=== PATIENT | male | born 1985 | race Caucasian/White ===

== ENCOUNTER 2020-06-14 08:12 | Inpatient (IN) | payer OTHER ==
--- NOTE | 2020-06-14 09:21 | BHS.RME ---
Substance Use & Tx History - Substance Use History Heroin Substance amount: 10 bags Frequency of use: Daily Substance route: Injection (ex: intravenous or skin popping) Date of Last Use: 07/13/20 Xanax Substance amount: 6 mgs Frequency of use: Daily Substance route: Oral Date of Last Use: 06/12/20 Alcohol Substance amount: 1/2 pint of whisky Frequency of use: Daily Substance route: Oral Date of Last Use: 06/13/20 - Last Treatment Date of last treatment: 2017 [place] Where was last treatment: Detox Physical/Psych/Mental Status - Behavior Eye Contact: Normal - Cooperativeness Cooperativeness: Cooperative - Thinking Thought Processes: Logical Thought content: Future oriented - Physical Health Problems Is patient presently having any pain?: No Does patient presently have any injuries (include location): No Does patient currently have a fever: No COWS - Scale Resting Pulse: 1= [place] 81-100 Sweatin= Chills/Flushing Restless Observation: 0= Sits Still Pupil Size: 1= Pupils >than Normal Bone or Joint Aches: 2= Severe Diffuse Aches Runny Nose/ Eye Tearin= Runny Nose/Eyes GI Upset > 30mins: 2= Nausea/Diarrhea Tremor Observation: 2= Slight Tremor Visible Yawning Observation: 1= 1-2x During Session Anxiety or Irritability: 2=Irritable/Anxious Goose Flesh Skin: 0=Smooth Skin COWS Score: 14 CIWA Nausea/Vomitin Muscle Tremors: 3 Anxiety: 3 Agitation: 3 Paroxysmal Sweats: 1-Minimal Palms Moist Orientation: 0-Oriented Tacttile Disturbances: 1-Very Mild Itch/Numbness Auditory Disturbances: 0-None Visual Disturbances: 0-None Headache: 2-Mild CIWA-Ar Total Score: 15
--- NOTE | 2020-06-14 09:29 | HP ---
COWS - Scale Resting Pulse: 1= [place] 81-100 Sweatin= Chills/Flushing Restless Observation: 0= Sits Still Pupil Size: 1= Pupils >than Normal Bone or Joint Aches: 2= Severe Diffuse Aches Runny Nose/ Eye Tearin= Runny Nose/Eyes GI Upset > 30mins: 2= Nausea/Diarrhea Tremor Observation: 2= Slight Tremor Visible Yawning Observation: 1= 1-2x During Session Anxiety or Irritability: 2=Irritable/Anxious Goose Flesh Skin: 0=Smooth Skin COWS Score: 14 CIWA Score Nausea/Vomitin Muscle Tremors: 3 Anxiety: 3 Agitation: 3 Paroxysmal Sweats: 1-Minimal Palms Moist Orientation: 0-Oriented Tacttile Disturbances: 1-Very Mild Itch/Numbness Auditory Disturbances: 0-None Visual Disturbances: 0-None Headache: 2-Mild CIWA-Ar Total Score: 15 - Admission Criteria [facility] Guidelines: Admission for Medically Managed Detox: Requires at least one of the followin. CIWA greater than 12 2. Seizures within the past 24 hours 3. Delirium tremens within the past 24 hours 4. Hallucinations within the past 24 hours 5. Acute intervention needed for co occurring medical disorder 6. Acute intervention needed for co occurring psychiatric disorder 7. Severe withdrawal that cannot be handled at a lower level of care (continued vomiting, continued diarrhea, abnormal vital signs) requiring intravenous medication and/or fluids 8. Admitting History and Physical - Admission Chief Complaint: i need help to stop using heroin and xanax and alcohol History of Present Illness: this 35 years old male with heroin,xanax and alcohol dependence seeking detox History Source: Patient Limitations to Obtaining History: No Limitations - Past Medical History Psych: Yes: Anxiety, Depression, Other (insomnia) - Past Surgical History Past Surgical History: Yes: None - Smoking History Smoking history: Current every day smoker Have you smoked in the past 12 months: Yes Aproximately how many cigarettes per day: 20 - Alcohol/Substance Use Hx Alcohol Use: Yes History of Substance Use: reports: Heroin, Tranquilizers Date of Last Use: 06/13/20 - Social History Usual Living Arrangement: Yes: Other (sister) Do you think of yourself as: Straight/Heterosexual ADL: Independent Occupation: un employed History of Recent Travel: No Other Social History: unemployed,nicottine dependence,no legal issue Admission [facility] Chief Complaint: i need help to stop using heroin,xanax,and alcohol Allergies/Adverse Reactions: Allergies Allergy/AdvReac Type Severity Reaction Status Date / Time shellfish derived Allergy Severe Swelling Verified 06/14/20 09:29 No Known Drug Allergies Allergy Verified 06/14/20 09:29 History of Present Illness: this 35 years old male with heroin,xanax and alcohol dependence seeking detox,multiple admissions in detox,and rehab,last [facility] in 2017 no seizure,no syncope nicotine dependence unemployed anxiety,depression,insomnia longest sobriety 3 years plan for rehab after detox Exam Limitations: No Limitations - Ebola screening Have you traveled outside of the country in the last 21 days: No Have you had contact with anyone from an Ebola affected area: No Do you have a fever: No - Review of Systems Constitutional: Chills, Loss of Appetite, Malaise, Night Sweats, Changes in sleep, Weakness EENT: reports: No Symptoms Reported, Nose Congestion Respiratory: reports: No Symptoms reported Cardiac: reports: No Symptoms Reported GI: reports: Nausea, Indigestion, Abdominal cramping : reports: No Symptoms Reported Musculoskeletal: reports: Back Pain, Joint Pain, Muscle Pain Integumentary: reports: Dryness Neuro: reports: Headache, Tremors Endocrine: reports: No Symptoms Reported Hematology: reports: No Symptoms Reported Psychiatric: reports: No Sypmtoms Reported, Judgement Intact, Mood/Affect Appropiate, Orientated x3, Anxious, Depressed, other (insomnia) Patient History - Patient Medical History Hx Anemia: No Hx Asthma: No Hx Chronic Obstructive Pulmonary Disease (COPD): No Hx Cancer: No Hx Cardiac Disorders: No Hx Congestive Heart Failure: No Hx Hypertension: No Hx Hypercholesterolemia: No Hx Pacemaker: No HX Cerebrovascular Accident: No Hx Seizures: No Hx Diabetes: No Hx Gastrointestinal Disorders: No Hx Liver Disease: No Hx Genitourinary Disorders: No Hx Sexually Transmitted Disorders: No Hx Renal Disease (ESRD): No Hx Thyroid Disease: No Hx Human Immunodeficiency Virus (HIV): No (last 2017 negative) Hx Hepatitis C: No Hx Depression: Yes (anxiety) Hx Suicide Attempt: No Hx Bipolar Disorder: No Hx Schizophrenia: No Other Medical History: no suicidal,no homicidal - Patient Surgical History Past Surgical History: No - PPD History Previous Implant?: Yes Documented Results: Negative w/o proof Implanted On Prior [facility] Admission?: Yes Date: 01/17/16 PPD to be Administered?: Yes - Smoking Cessation Smoking history: Current every day smoker Have you smoked in the past 12 months: Yes Aproximately how many cigarettes per day: 20 Hx Chewing Tobacco Use: No Initiated information on smoking cessation: Yes 'Breaking Loose' booklet given: 06/14/20 - Substance & Tx. History Hx Alcohol Use: Yes Hx Substance Use: Yes Substance Use Type: Alcohol, Heroin, Tranquilizers - Substances abused Heroin Substance route: Injection Frequency: Daily Amount used: 10 bags Age of first use: 27 Date of last use: 06/12/20 Alprazolam (Xanax) Substance route: Oral Frequency: Daily Amount used: 6 mgs Age of first use: 17 Date of last use: 06/12/20 Alcohol Substance route: Oral Frequency: Daily Amount used: 1/2 pint of whisky Age of first use: 14 Date of last use: 06/13/20 Admission Physical Exam S - Vital Signs Vital Signs: t98,p81,bp 112/78,r18 - Physical General Appearance: Yes: Moderate Distress, Tremorous, Irritable, Sweating, Anxious HEENTM: Yes: Normocephalic, GAMAL, Pharynx Normal Respiratory: Yes: Lungs Clear, Normal Breath Sounds, No Respiratory Distress Neck: Yes: Within Normal Limits, Supple, Trachea in good position Breast: Yes: Within Normal Limits Cardiology: Yes: Within Normal Limits, Regular Rhythm, Regular Rate, S1, S2 Abdominal: Yes: Within Normal Limits, Normal Bowel Sounds, Non Tender, Flat, Soft Genitourinary: Yes: Within Normal Limits Back: Yes: Muscle Spasm Musculoskeletal: Yes: Back pain, Muscle Pain Extremities: Yes: Tremors Neurological: Yes: director of group counseling program II-XII NML intact, Fully Oriented, Alert, Motor Strength 5/5 Integumentary: Yes: Dry, Track Sethi Lymphatic: Yes: Within Normal Limits - Diagnostic (1) Opioid dependence with withdrawal Current Visit: No Status: Acute (2) Sedative hypnotic or anxiolytic dependence Current Visit: No Status: Acute (3) Insomnia Current Visit: Yes Status: Acute (4) Anxiety and depression Current Visit: Yes Status: Acute (5) IVDU (intravenous drug user) Current Visit: Yes Status: Acute Cleared for Admission S - Detox or Rehab [facility] Level of Care: Medically Managed Detox Regimen/Protocol: Methadone/Valium Inpatient Rehab Admission - Rehab Decision to Admit Inpatient rehab admission?: No
[2020-06-14] MEDS ORDERED: MAGNESIUM HYDROX 2400MG/30ML ORAL SUSPENSION 30 ML CUP PO PRN (09:45)
[2020-06-14] MEDS ORDERED: cloNIDine HCL 0.1 MG TABLET PO PRN (09:45)
[2020-06-14] MEDS ORDERED: ACETAMINOPHEN 325 MG TABLET (FP) PO PRN ×2 (09:45)
[2020-06-14] MEDS ORDERED: METHADONE HCL 10 MG TABLET (FOR DETOX USE ONLY) PO ONE (09:45)
[2020-06-14] MEDS ORDERED: NICOTINE POLACRILEX 2 MG GUM BUC PRN (09:45)
[2020-06-14] MEDS ORDERED: METHOCARBAMOL 500 MG TABLET PO PRN (09:45)
[2020-06-14] MEDS ORDERED: BISMUTH SUBSALICYLATE 524 MG/30 ML UD PO PRN (09:45)
[2020-06-14] MEDS ORDERED: ONDANSETRON *ODT* 4 MG TABLET SL ONE (09:45)
[2020-06-14] MEDS ORDERED: MAG HYDROX/AL HYDROX/SIMETH 30 ML UNIT-DOSE CUP PO PRN (09:45)
[2020-06-14] MEDS ORDERED: MAGNESIUM CITRATE 300 ML BOTTLE PO PRN (09:45)
[2020-06-14] MEDS ORDERED: IBUPROFEN 400 MG TABLET (FP) PO PRN (09:45)
[2020-06-14] MEDS ORDERED: diazePAM 5 MG TABLET PO PRN (09:45)
[2020-06-14] MEDS ORDERED: MENTHOL/PHENOL 1 EACH UD MM PRN (09:45)
[2020-06-14 10:02] VITALS: BMI 29.8
[2020-06-14] MEDS: hydrOXYzine PAMOATE 25 MG CAPSULE (FP) PO SCH ×4 (10:50→22:52)
[2020-06-14] MEDS: PRENATAL VITAMINS W/ FOLIC ACID TABLET (FP) PO SCH (10:50)
--- NOTE | 2020-06-14 10:57 | PN ---
BHS Progress Note Note: received nurse call actifed needed to be added into prn
[2020-06-14] MEDS: NICOTINE 21 MG/24 HOURS TOPICAL PATCH TD SCH (11:11)
--- NOTE | 2020-06-14 12:49 | CONSULT ---
[facility] Psychiatric Consult - Data Date of interview: 06/14/20 Admission source: Self-referred Identifying data: Mr Tomlinson is a 35 years old single male, unemployed with no source of income, living with his sister seeking detox treatment for alcohol, opioid and benzodiazepine Substance Abuse History: Reports history of alcohol, herin and xanax use. Refer to addiction counselor's summary for further information Medical History: Unremarkable. Smokes cigarettes 1 ppd Psychiatric History: Patient is known for one previous admission to this facility. He denies history of previous psychiatric treatment. However, reports feeling depressed and sleeping poorly. During his previous admission to this facility, he was prescribed Ambien 10 mg/hs prn for insomnia Physical/Sexual Abuse/Trauma History: Denies history of abuse as a child or DV relationship as an adult Mental Status Exam - Mental Status Exam Alert and Oriented to: Time, Place, Person Patient Appearance: Well Groomed Mood: Depressed Affect: Appropriate Patient Behavior: Cooperative Speech Pattern: Clear Voice Loudness: Normal, Monoloudness Thought Process: Goal Oriented Thought Disorder: Not Present Hallucinations: Denies Suicidal Ideation: Denies Homicidal Ideation: Denies Insight/Judgement: Poor Sleep: Poorly Appetite: Good Muscle strength/Tone: Normal Gait/Station: Normal Psychiatric Findings - Problem List ([place] 1, 2,3) (1) Substance induced mood disorder Current Visit: Yes Status: Acute (2) Substance-induced sleep disorder Current Visit: No Status: Acute (3) Uncomplicated alcohol dependence Current Visit: Yes Status: Acute (4) Opioid dependence with withdrawal Current Visit: No Status: Acute (5) Sedative hypnotic or anxiolytic dependence Current Visit: No Status: Acute (6) Nicotine dependence Current Visit: No Status: Chronic - Initial Treatment Plan Initial Treatment Plan: 1) Start Belsomra 10 mg po HS prn for insomnia. 2) Continue inpatient detoxification
[2020-06-14] MEDS ORDERED: P-EPHED 60MG/TRIPROLIDI 2.5MG TABLET PO PRN (14:00)
[2020-06-14] MEDS: diazePAM 5 MG TABLET PO SCH ×2 (14:19→22:52)
[2020-06-14] MEDS ORDERED: SUVOREXANT 10 MG TABLET PO PRN (22:00)
[2020-06-14] MEDS ORDERED: MELATONIN 5 MG TABLETS PO SCH (22:00)
[2020-06-14] MEDS: THIAMINE HCL 100 MG TABLET (FP) PO SCH (22:51)
[2020-06-15] MEDS: diazePAM 5 MG TABLET PO SCH ×3 (05:48→22:30)
[2020-06-15] MEDS: hydrOXYzine PAMOATE 25 MG CAPSULE (FP) PO SCH ×2 (05:49→10:46)
[2020-06-15] MEDS ORDERED: METHADONE HCL 10 MG TABLET (FOR DETOX USE ONLY) ONE (09:03)
[2020-06-15] MEDS ORDERED: METHADONE HCL 5 MG TABLET (FOR DETOX USE ONLY) ONE (09:04)
[2020-06-15] MEDS ORDERED: METHADONE (DETOX) 20 MG, METHADONE (DETOX) 5 MG PO ONE (10:00)
[2020-06-15] MEDS: PRENATAL VITAMINS W/ FOLIC ACID TABLET (FP) PO SCH (10:44)
[2020-06-15] MEDS: NICOTINE 21 MG/24 HOURS TOPICAL PATCH TD SCH (10:45)
[2020-06-15 11:01] LABS: HEMATOCRIT 44.3 % (35.4-49); HEMOGLOBIN 14.4 GM/dL (11.7-16.9); MCH 27.8 pg (25.7-33.7); MCHC 32.6 g/dl (32.0-35.9); MEAN CELL VOLUME 85.3 fl (80-96); MEAN PLT VOLUME 8.9 fl (7.5-11.1); PLATELET COUNT 287 K/MM3 (134-434); RDW 14.4 % (11.9-15.9); WHITE BLOOD COUNT 9.9 K/mm3 (4.0-10.0)
[2020-06-15] MEDS ORDERED: DICYCLOMINE HCL 10 MG CAPSULE PO ONE (11:11)
[2020-06-15] MEDS ORDERED: hydrOXYzine PAMOATE 25 MG CAPSULE (FP) PO PRN (11:11)
--- NOTE | 2020-06-15 11:15 | PN ---
S CIWA - CIWA Score Nausea/Vomitin-Mild Nausea/No Vomiting Muscle Tremors: 3 Anxiety: 4-Mod. Anxious/Guarded Agitation: 2 Paroxysmal Sweats: 1-Minimal Palms Moist Orientation: 0-Oriented Tacttile Disturbances: 0-None Auditory Disturbances: 0-None Visual Disturbances: 1-Very Mild Sensitivity Headache: 1-Very Mild CIWA-Ar Total Score: 13 BHS COWS - Scale Resting Pulse: 0= [place] 80 or Below Sweatin= Chills/Flushing Restless Observation: 0= Sits Still Pupil Size: 1= Pupils >than Normal Bone or Joint Aches: 2= Severe Diffuse Aches Runny Nose/ Eye Tearin= None GI Upset > 30mins: 2= Nausea/Diarrhea Tremor Observation of Outstretched Hands: 2= Slight Tremor Visible Yawning Observation: 0= None Anxiety or Irritability: 2=Irritable/Anxious Goose Flesh Skin: 3=Piloerection COWS Score: 13 S Progress Note (SOAP) Subjective: 35 years old male admitted on 06/14/20 for alcohol benzo opiate withdrawal sx management treating with valium and methadone detox regiments abdominal cramping bentyl 20 mg po x 1 GERD discontinue motrin pepcide 20 mg po bid initiated change vistaril to prn Objective: 06/15/20 11:14 Vital Signs - 24 hr 06/14/20 06/14/20 06/14/20 13:21 16:59 20:37 Temperature 97.3 F L 98.6 F 97.6 F Pulse Rate 62 76 65 Respiratory 18 18 18 Rate Blood Pressure 114/77 111/74 117/77 O2 Sat by Pulse 95 97 Oximetry (%) 06/15/20 06/15/20 06:29 08:52 Temperature 98.4 F 98.6 F Pulse Rate 63 59 L Respiratory 18 20 Rate Blood Pressure 124/86 106/63 O2 Sat by Pulse 97 Oximetry (%) 06/15/20 11:14 lab pending Assessment: 06/15/20 11:14 alcohol benzo opiate withdrawal 06/15/20 11:15 GERD Plan: valium and methadone regiment pepcide 20 mg po bid
[2020-06-15 11:17] LABS: ALBUMIN 3.7 g/dl (3.4-5.0); BILIRUBIN,TOTAL 0.6 mg/dL (0.2-1); BLOOD UREA NITROGEN 14.1 mg/dL (7-18); CALCIUM 9.2 mg/dL (8.5-10.1); CREATININE 0.7 mg/dL (0.55-1.3); TOT PROT 7.4 g/dl (6.4-8.2)
[2020-06-15] MEDS: FAMOTIDINE 20 MG TABLET PO SCH ×2 (12:07→22:31)
[2020-06-15] MEDS: THIAMINE HCL 100 MG TABLET (FP) PO SCH (22:31)
[2020-06-16] MEDS: diazePAM 5 MG TABLET PO SCH ×2 (06:06→17:51)
[2020-06-16] MEDS ORDERED: METHADONE HCL 10 MG TABLET (FOR DETOX USE ONLY) PO ONE (10:00)
[2020-06-16] MEDS: PRENATAL VITAMINS W/ FOLIC ACID TABLET (FP) PO SCH (10:12)
[2020-06-16] MEDS: FAMOTIDINE 20 MG TABLET PO SCH ×2 (10:13→22:26)
[2020-06-16] MEDS: NICOTINE 21 MG/24 HOURS TOPICAL PATCH TD SCH (10:13)
--- NOTE | 2020-06-16 10:36 | PN ---
S CIWA - CIWA Score Nausea/Vomitin-Mild Nausea/No Vomiting Muscle Tremors: 3 Anxiety: 2 Agitation: 0-Normal Activity Paroxysmal Sweats: 1-Minimal Palms Moist Orientation: 0-Oriented Tacttile Disturbances: 1-Very Mild Itch/Numbness Auditory Disturbances: 0-None Visual Disturbances: 2-Mild Sensitivity Headache: 0-None Present CIWA-Ar Total Score: 10 S COWS - Scale Resting Pulse: 0= [place] 80 or Below Sweatin= Chills/Flushing Restless Observation: 0= Sits Still Pupil Size: 1= Pupils >than Normal Bone or Joint Aches: 1= Mild Discomfort Runny Nose/ Eye Tearin= Nasal Congestion GI Upset > 30mins: 2= Nausea/Diarrhea Tremor Observation of Outstretched Hands: 2= Slight Tremor Visible Yawning Observation: 0= None Anxiety or Irritability: 2=Irritable/Anxious Goose Flesh Skin: 0=Smooth Skin COWS Score: 10 S Progress Note (SOAP) Subjective: 35 years old male admitted on 06/14/20 for alcohol benzo opiate withdrawal sx management treating with valium and methadone detox regiments less tremor mild general body aches discussing medication assisted treatment program 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 from pharmacy upon discharge from detox Objective: 06/16/20 10:40 Vital Signs - 24 hr 06/15/20 06/15/20 06/15/20 12:50 16:50 20:50 Temperature 97.6 F 98.4 F 98.0 F Pulse Rate 64 63 64 Respiratory 18 18 18 Rate Blood Pressure 108/62 110/74 117/74 O2 Sat by Pulse 98 99 Oximetry (%) 06/16/20 06/16/20 06:09 08:30 Temperature 97.7 F 97.1 F L Pulse Rate 61 68 Respiratory 18 18 Rate Blood Pressure 105/67 106/70 O2 Sat by Pulse 97 Oximetry (%) Laboratory Tests 06/14/20 06/15/20 06/15/20 10:20 08:05 08:05 WBC RBC Hgb Hct MCV MCH MCHC RDW Plt Count MPV Sodium Potassium Chloride Carbon Dioxide Anion Gap BUN Creatinine Est GFR (CKD-EPI)AfAm Est GFR (CKD-EPI)NonAf Random Glucose Calcium Total Bilirubin AST ALT Alkaline Phosphatase Total Protein Albumin Syphilis Serology Non-reactive COVID-19 ([facility]) Not detected HIV Ag/Ab Combo Qual Negative 06/15/20 06/15/20 08:05 08:05 WBC 9.9 RBC 5.20 Hgb 14.4 Hct 44.3 MCV 85.3 MCH 27.8 MCHC 32.6 RDW 14.4 Plt Count 287 D MPV 8.9 Sodium 140 Potassium 4.0 Chloride 108 H Carbon Dioxide 25 Anion Gap 7 L BUN 14.1 Creatinine 0.7 Est GFR (CKD-EPI)AfAm 142.70 Est GFR (CKD-EPI)NonAf 123.13 Random Glucose 123 H Calcium 9.2 Total Bilirubin 0.6 AST 12 L ALT 17 Alkaline Phosphatase 72 Total Protein 7.4 Albumin 3.7 Syphilis Serology COVID-19 ([facility]) HIV Ag/Ab Combo Qual lab noted 06/16/20 10:41 fasting pending Assessment: 06/16/20 10:41 alcohol benzo opiate withdrawal Plan: valium and opiate regiments
[2020-06-16 14:41] LABS: EPI CELLS 26 /uL (0-25.1); HYALINE CASTS 11 /uL (0-3.1); PH,URINE 6.5 (5.0-8.0); URINE APPEARANCE CLEAR; URINE BACTERIA 10 /uL (0-1359); URINE BILIRUBIN NEGATIVE (NEGATIVE); URINE COLOR DK YELLOW; URINE GLUCOSE (UA) NEGATIVE (NEGATIVE); URINE KETONE TRACE (NEGATIVE); URINE LEUK ESTERASE 1+ (NEGATIVE); URINE NITRITE NEGATIVE (NEGATIVE); URINE PROTEIN 1+ (NEGATIVE); URINE RBC 6 /uL (0-23.9); URINE WBC 93 /uL (0-25.8)
[2020-06-16] MEDS: THIAMINE HCL 100 MG TABLET (FP) PO SCH (22:25)
[2020-06-17] MEDS ORDERED: diazePAM 5 MG TABLET PO ONE (06:00)
[2020-06-17] MEDS ORDERED: METHADONE HCL 5 MG TABLET (FOR DETOX USE ONLY) ONE (09:27)
[2020-06-17] MEDS ORDERED: METHADONE HCL 10 MG TABLET (FOR DETOX USE ONLY) ONE (09:27)
[2020-06-17] MEDS ORDERED: METHADONE (DETOX) 10 MG, METHADONE (DETOX) 5 MG PO ONE (10:00)
[2020-06-17] MEDS: NICOTINE 21 MG/24 HOURS TOPICAL PATCH TD SCH (10:36)
[2020-06-17] MEDS: PRENATAL VITAMINS W/ FOLIC ACID TABLET (FP) PO SCH (10:36)
[2020-06-17] MEDS: FAMOTIDINE 20 MG TABLET PO SCH ×2 (10:38→22:08)
--- NOTE | 2020-06-17 11:45 | PN ---
S CIWA - CIWA Score Nausea/Vomitin-Mild Nausea/No Vomiting Muscle Tremors: 2 Anxiety: 1-Mildly Anxious Agitation: 1-Slight > Activity Paroxysmal Sweats: 1-Minimal Palms Moist Orientation: 0-Oriented Tacttile Disturbances: 0-None Auditory Disturbances: 0-None Visual Disturbances: 2-Mild Sensitivity Headache: 1-Very Mild CIWA-Ar Total Score: 9 BHS COWS - Scale Resting Pulse: 0= [place] 80 or Below Sweatin= Chills/Flushing Restless Observation: 0= Sits Still Pupil Size: 1= Pupils >than Normal Bone or Joint Aches: 1= Mild Discomfort Runny Nose/ Eye Tearin= Nasal Congestion GI Upset > 30mins: 1= Stomach Cramp Tremor Observation of Outstretched Hands: 2= Slight Tremor Visible Yawning Observation: 1= 1-2x During Session Anxiety or Irritability: 1=Feels Anxious/Irritable Goose Flesh Skin: 0=Smooth Skin COWS Score: 9 S Progress Note (SOAP) Subjective: 35 years old male admitted on 06/14/20 for alcohol benzo opiate withdrawal sx management treating with valium and methadone detox regiment less tremor slept well with belsomra reports feeling ok today Objective: 06/17/20 11:45 Vital Signs - 24 hr 06/16/20 06/16/20 06/16/20 12:34 16:39 20:42 Temperature 97.8 F 97.7 F 98.3 F Pulse Rate 61 58 L 49 L Respiratory 18 16 18 Rate Blood Pressure 110/61 105/73 104/74 O2 Sat by Pulse 98 97 Oximetry (%) 06/17/20 06/17/20 06:39 08:52 Temperature 97.7 F 97.3 F L Pulse Rate 55 L 75 Respiratory 18 18 Rate Blood Pressure 104/67 107/71 O2 Sat by Pulse 98 Oximetry (%) Laboratory Tests 06/14/20 06/15/20 06/15/20 10:20 08:05 08:05 WBC RBC Hgb Hct MCV MCH MCHC RDW Plt Count MPV Sodium Potassium Chloride Carbon Dioxide Anion Gap BUN Creatinine Est GFR (CKD-EPI)AfAm Est GFR (CKD-EPI)NonAf Random Glucose Calcium Total Bilirubin AST ALT Alkaline Phosphatase Total Protein Albumin Urine Color Urine Appearance Urine pH Ur Specific [place] Urine Protein Urine Glucose (UA) Urine Ketones Urine Blood Urine Nitrite Urine Bilirubin Urine Urobilinogen Ur Leukocyte Esterase Urine WBC (Auto) Urine RBC (Auto) Urine Casts (Auto) U Epithel Cells (Auto) U Sm Round Cell (Auto) Urine Crystals (Auto) Urine Bacteria (Auto) Syphilis Serology Non-reactive COVID-19 ([facility]) Not detected HIV Ag/Ab Combo Qual Negative 06/15/20 06/15/20 06/16/20 08:05 08:05 08:50 WBC 9.9 RBC 5.20 Hgb 14.4 Hct 44.3 MCV 85.3 MCH 27.8 MCHC 32.6 RDW 14.4 Plt Count 287 D MPV 8.9 Sodium 140 Potassium 4.0 Chloride 108 H Carbon Dioxide 25 Anion Gap 7 L BUN 14.1 Creatinine 0.7 Est GFR (CKD-EPI)AfAm 142.70 Est GFR (CKD-EPI)NonAf 123.13 Random Glucose 123 H Calcium 9.2 Total Bilirubin 0.6 AST 12 L ALT 17 Alkaline Phosphatase 72 Total Protein 7.4 Albumin 3.7 Urine Color Dk yellow Urine Appearance Clear Urine pH 6.5 Ur Specific [place] 1.036 H Urine Protein 1+ H Urine Glucose (UA) Negative Urine Ketones Trace H Urine Blood Negative Urine Nitrite Negative Urine Bilirubin Negative Urine Urobilinogen 1.0 Ur Leukocyte Esterase 1+ H Urine WBC (Auto) 93 Urine RBC (Auto) 6 Urine Casts (Auto) 11 U Epithel Cells (Auto) 26 U Sm Round Cell (Auto) None seen Urine Crystals (Auto) 5-10 Urine Bacteria (Auto) 10 Syphilis Serology COVID-19 ([facility]) HIV Ag/Ab Combo Qual glucose elevation uti uncomplicated Assessment: 06/17/20 11:51 alcohol benzo opiate withdrawal Plan: valium and methadone regiment
[2020-06-17] MEDS ORDERED: SULFAMETHOXAZOLE/TRIMETHOPRIM 800MG/160MG D.S. TABLET PO SCH (12:00)
[2020-06-17] MEDS: SULFAMETHOXAZOLE/TRIMETHOPRIM 800MG/160MG D.S. TABLET PO SCH ×2 (13:26→22:08)
[2020-06-17] MEDS: THIAMINE HCL 100 MG TABLET (FP) PO SCH (22:08)
[2020-06-18] MEDS ORDERED: METHADONE HCL 10 MG TABLET (FOR DETOX USE ONLY) PO ONE (10:00)
[2020-06-18] MEDS: SULFAMETHOXAZOLE/TRIMETHOPRIM 800MG/160MG D.S. TABLET PO SCH ×2 (10:29→22:49)
[2020-06-18] MEDS: FAMOTIDINE 20 MG TABLET PO SCH ×2 (10:30→22:50)
[2020-06-18] MEDS: NICOTINE 21 MG/24 HOURS TOPICAL PATCH TD SCH (10:30)
[2020-06-18] MEDS: PRENATAL VITAMINS W/ FOLIC ACID TABLET (FP) PO SCH (10:30)
--- NOTE | 2020-06-18 13:32 | PN ---
S CIWA - CIWA Score Nausea/Vomitin-No Nausea/No Vomiting Muscle Tremors: 2 Anxiety: 1-Mildly Anxious Agitation: 0-Normal Activity Paroxysmal Sweats: No Perspiration Orientation: 0-Oriented Tacttile Disturbances: 0-None Auditory Disturbances: 0-None Visual Disturbances: 2-Mild Sensitivity Headache: 1-Very Mild CIWA-Ar Total Score: 6 BHS COWS - Scale Resting Pulse: 0= [place] 80 or Below Sweatin= No chills or Flushing Restless Observation: 0= Sits Still Pupil Size: 0= Normal to Room Light Bone or Joint Aches: 1= Mild Discomfort Runny Nose/ Eye Tearin= Nasal Congestion GI Upset > 30mins: 1= Stomach Cramp Tremor Observation of Outstretched Hands: 2= Slight Tremor Visible Yawning Observation: 0= None Anxiety or Irritability: 1=Feels Anxious/Irritable Goose Flesh Skin: 0=Smooth Skin COWS Score: 6 S Progress Note (SOAP) Subjective: 35 years old male admitted on 06/14/20 for alcohol benzo opiate withdrawal treating with valium and methadone detox regiments feeling better today less tremor slept through the night tolerated bactrim ds bid well for urinary track infection uncomplicated Objective: 06/18/20 13:37 Vital Signs - 24 hr 06/17/20 06/17/20 06/18/20 16:43 20:33 06:14 Temperature 97.7 F 97.7 F 97.3 F L Pulse Rate 52 L 60 51 L Respiratory 18 18 18 Rate Blood Pressure 101/70 105/73 100/64 O2 Sat by Pulse 100 98 Oximetry (%) 06/18/20 06/18/20 08:46 12:58 Temperature 96.9 F L 96.9 F L Pulse Rate 76 65 Respiratory 20 18 Rate Blood Pressure 100/71 110/67 O2 Sat by Pulse 96 Oximetry (%) Laboratory Tests 06/14/20 06/15/20 06/15/20 10:20 08:05 08:05 WBC RBC Hgb Hct MCV MCH MCHC RDW Plt Count MPV Sodium Potassium Chloride Carbon Dioxide Anion Gap BUN Creatinine Est GFR (CKD-EPI)AfAm Est GFR (CKD-EPI)NonAf Random Glucose Calcium Total Bilirubin AST ALT Alkaline Phosphatase Total Protein Albumin Urine Color Urine Appearance Urine pH Ur Specific [place] Urine Protein Urine Glucose (UA) Urine Ketones Urine Blood Urine Nitrite Urine Bilirubin Urine Urobilinogen Ur Leukocyte Esterase Urine WBC (Auto) Urine RBC (Auto) Urine Casts (Auto) U Epithel Cells (Auto) U Sm Round Cell (Auto) Urine Crystals (Auto) Urine Bacteria (Auto) Syphilis Serology Non-reactive COVID-19 ([facility]) Not detected HIV Ag/Ab Combo Qual Negative 06/15/20 06/15/20 06/16/20 08:05 08:05 08:50 WBC 9.9 RBC 5.20 Hgb 14.4 Hct 44.3 MCV 85.3 MCH 27.8 MCHC 32.6 RDW 14.4 Plt Count 287 D MPV 8.9 Sodium 140 Potassium 4.0 Chloride 108 H Carbon Dioxide 25 Anion Gap 7 L BUN 14.1 Creatinine 0.7 Est GFR (CKD-EPI)AfAm 142.70 Est GFR (CKD-EPI)NonAf 123.13 Random Glucose 123 H Calcium 9.2 Total Bilirubin 0.6 AST 12 L ALT 17 Alkaline Phosphatase 72 Total Protein 7.4 Albumin 3.7 Urine Color Dk yellow Urine Appearance Clear Urine pH 6.5 Ur Specific [place] 1.036 H Urine Protein 1+ H Urine Glucose (UA) Negative Urine Ketones Trace H Urine Blood Negative Urine Nitrite Negative Urine Bilirubin Negative Urine Urobilinogen 1.0 Ur Leukocyte Esterase 1+ H Urine WBC (Auto) 93 Urine RBC (Auto) 6 Urine Casts (Auto) 11 U Epithel Cells (Auto) 26 U Sm Round Cell (Auto) None seen Urine Crystals (Auto) 5-10 Urine Bacteria (Auto) 10 Syphilis Serology COVID-19 ([facility]) HIV Ag/Ab Combo Qual 06/18/20 13:39 fasting glucose has been cancelled Assessment: 06/18/20 13:40 alcohol benzo opiate withdrawal Plan: valium and methadone regiments
[2020-06-18] MEDS: THIAMINE HCL 100 MG TABLET (FP) PO SCH (22:50)
[2020-06-19] MEDS ORDERED: METHADONE HCL 5 MG TABLET (FOR DETOX USE ONLY) PO ONE (06:00)
[2020-06-19] MEDS: NICOTINE 21 MG/24 HOURS TOPICAL PATCH TD SCH (09:43)
[2020-06-19] MEDS: SULFAMETHOXAZOLE/TRIMETHOPRIM 800MG/160MG D.S. TABLET PO SCH (09:43)
[2020-06-19] MEDS: FAMOTIDINE 20 MG TABLET PO SCH (09:44)
[2020-06-19] MEDS: PRENATAL VITAMINS W/ FOLIC ACID TABLET (FP) PO SCH (09:44)
[2020-06-19 09:47] VITALS: BP 118/71; PULSE 75; TEMP 97.3
--- NOTE | 2020-06-19 10:27 | DS ---
[facility] Detox Discharge Summary Admission Date: 06/14/20 Discharge Date: 06/19/20 - History Present History: Alcohol Dependence, Opioid Dependence Pertinent Past History: Mr. Krause was admitted to [facility] for alcohol and heroin use disorder. - Physical Exam Results Vital Signs: Vital Signs Temperature 97.3 F L 06/19/20 08:48 Pulse Rate 75 06/19/20 08:48 Respiratory Rate 20 06/19/20 08:48 Blood Pressure 118/71 06/19/20 08:48 O2 Sat by Pulse Oximetry (%) 100 06/19/20 05:45 Pertinent Admission Physical Exam Findings: PE Gnl: WDWN, in no distress MS: normal mentation Coord: nl Gait: Steady Laboratory Tests 06/14/20 06/15/20 06/15/20 10:20 08:05 08:05 WBC RBC Hgb Hct MCV MCH MCHC RDW Plt Count MPV Sodium Potassium Chloride Carbon Dioxide Anion Gap BUN Creatinine Est GFR (CKD-EPI)AfAm Est GFR (CKD-EPI)NonAf Random Glucose Calcium Total Bilirubin AST ALT Alkaline Phosphatase Total Protein Albumin Urine Color Urine Appearance Urine pH Ur Specific Kevin Urine Protein Urine Glucose (UA) Urine Ketones Urine Blood Urine Nitrite Urine Bilirubin Urine Urobilinogen Ur Leukocyte Esterase Urine WBC (Auto) Urine RBC (Auto) Urine Casts (Auto) U Epithel Cells (Auto) U Sm Round Cell (Auto) Urine Crystals (Auto) Urine Bacteria (Auto) Syphilis Serology Non-reactive COVID-19 ([facility]) Not detected HIV Ag/Ab Combo Qual Negative 06/15/20 06/15/20 06/16/20 08:05 08:05 08:50 WBC 9.9 RBC 5.20 Hgb 14.4 Hct 44.3 MCV 85.3 MCH 27.8 MCHC 32.6 RDW 14.4 Plt Count 287 D MPV 8.9 Sodium 140 Potassium 4.0 Chloride 108 H Carbon Dioxide 25 Anion Gap 7 L BUN 14.1 Creatinine 0.7 Est GFR (CKD-EPI)AfAm 142.70 Est GFR (CKD-EPI)NonAf 123.13 Random Glucose 123 H Calcium 9.2 Total Bilirubin 0.6 AST 12 L ALT 17 Alkaline Phosphatase 72 Total Protein 7.4 Albumin 3.7 Urine Color Dk yellow Urine Appearance Clear Urine pH 6.5 Ur Specific Kevin 1.036 H Urine Protein 1+ H Urine Glucose (UA) Negative Urine Ketones Trace H Urine Blood Negative Urine Nitrite Negative Urine Bilirubin Negative Urine Urobilinogen 1.0 Ur Leukocyte Esterase 1+ H Urine WBC (Auto) 93 Urine RBC (Auto) 6 Urine Casts (Auto) 11 U Epithel Cells (Auto) 26 U Sm Round Cell (Auto) None seen Urine Crystals (Auto) 5-10 Urine Bacteria (Auto) 10 Syphilis Serology COVID-19 ([facility]) HIV Ag/Ab Combo Qual Vital Signs Temperature 97.3 F L 06/19/20 08:48 Pulse Rate 75 06/19/20 08:48 Respiratory Rate 20 06/19/20 08:48 Blood Pressure 118/71 06/19/20 08:48 O2 Sat by Pulse Oximetry (%) 100 06/19/20 05:45 - Treatment Hospital Course: Detox Protocol Followed, Detoxed Safely, Responded well, Discharged Condition Good Patient has Accepted a Rehab Referral to: pt declined referral for aftercare - Medication Discharge Medications: Ambulatory Orders Naloxone HCl [Narcan] 4 mg NS ASDIR PRN #1 spray 06/16/20 - AMA Did Patient Leave Against Medical Advice: No
== END 2020-06-19 09:08 | disposition home or self-care (01) | DRG 773 ==
LOC: YASAS 08:12 → Y3N 10:04
PROVIDERS: ADMIT Allergy & Immunology; ATTEND Allergy & Immunology
PROC: HZ2ZZZZ Detoxification Services for Substance Abuse Treatment (ICD-10-PCS; principal; 2020-06-14)
DX: F11.23 Opioid dependence with withdrawal (principal); F10.230 Alcohol dependence with withdrawal, uncomplicated; F13.230 Sedative, hypnotic or anxiolytic dependence with withdrawal, uncomplicated; F17.210 Nicotine dependence, cigarettes, uncomplicated; F19.24 Other psychoactive substance dependence with psychoactive substance-induced mood disorder; F19.282 Other psychoactive substance dependence with psychoactive substance-induced sleep disorder; F41.9 Anxiety disorder, unspecified; F32.9 Major depressive disorder, single episode, unspecified; K21.9 Gastro-esophageal reflux disease without esophagitis; G47.00 Insomnia, unspecified; Z91.013 Allergy to seafood; Z56.0 Unemployment, unspecified
CPT/HCPCS: 36415; 80053; 81003; 85027; 86780; 87389; Q0162; U0003